=== PATIENT | male | born 1980 | race Caucasian/White ===

== ENCOUNTER 2016-02-23 12:21 | Emergency (ER) | payer MEDICAID ==
[2016-02-23 12:37] VITALS: BP 144/94; PULSE 78; RESP 18; TEMP 98; O2SAT 97
--- NOTE | 2016-02-23 12:39 | UCPHY ---
H & P Patient Type: Established Smoking Status: Never smoked Time Seen by Provider: 02/23/16 12:36 HPI/ROS: HPI: 35-year-old gentleman presents to urgent care with chief concern request for refill of his 40 mg daily lisinopril medication. Last dose was yesterday. Does not have a primary care provider who can refill this medication. He has a chronic pain medication patient who is currently medicated with Suboxone by Mckenzie Coppola MD who last filled his Lisinopril. Denies dizziness, visual changes, headache, shortness of breath, chest pain, nausea vomiting. ROS:10 point review of systems is negative other than as stated in HPI (Blanche Mosqueda) Physical Exam: Vital signs stable, reviewed by me General: Awake, alert, calm, cooperative. No acute distress. Head: Normalocephalic. Atraumatic. EENT: PERRLA. EOMI. Respiratory: Breathing unlabored. CV: Heart rate regular. Neuro: Alert. Oriented x 3. Speech clear. Skin: Skin warm, dry, intact. Extremities: Moves all extremities Mental status: Interactive, appropriate, well-groomed. (Blanche Mosqueda) Constitutional: Initial Vital Signs Temperature (C) 36.6 C 02/23/16 12:29 Heart Rate 78 02/23/16 12:29 Respiratory Rate 18 02/23/16 12:29 Blood Pressure 144/94 H 02/23/16 12:29 O2 Sat (%) 97 02/23/16 12:29 O2 Delivery Mode Room Air Allergies/Adverse Reactions: sulfamethoxazole [From Bactrim] Allergy (Verified 02/08/15 17:32) trimethoprim [From Bactrim] Allergy (Verified 02/08/15 17:32) Home Medications: Medication Instructions Recorded DULoxetine [Cymbalta 30 MG (RX)] mg PO HS 10/16/12 Lisinopril mg PO 10/16/12 Acyclovir 02/04/13 Zubsolv 08/27/13 Lisinopril [Zestril 40 mg (*)] 40 mg PO DAILY #30 tab 02/23/16 MDM/Departure - MDM ED Course/Re-evaluation: The patient was evaluated and managed by the nurse practitioner, Blanche Mosqueda.. My co-signature indicates that I have reviewed this chart and I agree with the findings and plan of care as documented. I am the secondary supervising physician. (Dionne Moore) - Depart Disposition: Home, Routine, Self-Care Clinical Impression: Encounter for medication refill Instructions: Lisinopril (By mouth) Additional Instructions: Plan: Take your lisinopril 40 mg daily as prescribed by your primary care provider Get established at [facility], call this week for a new patient appointment --When you call to schedule appointment, please let the office know you are an "ER follow up" appointment" Prescriptions: Lisinopril [Zestril 40 mg (*)] 40 mg PO DAILY #30 tab Referrals: NONE *PRIMARY CARE P,. [Primary Care Provider] - As per Instructions [facility] [Outside] - As per Instructions - PQRS PQRS Measurement: Not applicable (Blanche Mosqueda)
== END 2016-02-23 12:40 | disposition home or self-care (01) ==
LOC: CED 12:21
DX: Z76.0 Encounter for issue of repeat prescription (principal)
CPT/HCPCS: 99214-PO; G0463-PO